=== PATIENT | female | born 1985 | race Caucasian/White ===

== ENCOUNTER 2023-02-19 18:06 | Outpatient (CLI) | payer MEDICAID | END 2023-02-19 18:07 | disposition critical access hospital (66) | LOC: EMS 18:06 | DX: S70.312A Abrasion, left thigh, initial encounter (principal); S70.311A Abrasion, right thigh, initial encounter; S50.312A Abrasion of left elbow, initial encounter; S80.212A Abrasion, left knee, initial encounter; S80.211A Abrasion, right knee, initial encounter; V03.90XA Pedestrian on foot injured in collision with car, pick-up truck or van, unspecified whether traffic or nontraffic accident, initial encounter; Y92.414 Local residential or business street as the place of occurrence of the external cause | CPT/HCPCS: A0425; A0429 ==

== ENCOUNTER 2023-02-19 18:43 | Emergency (ER) | payer MEDICAID ==
[2023-02-19] MEDS: ONDANSETRON 4 MG/2 ML VIAL IVP STA (19:00)
[2023-02-19] MEDS: MORPHINE 2 MG/ML CARPUJECT IVP STA (19:02)
[2023-02-19] MEDS: TETANUS/DIPHTHERIA/PERTUSSIS 0.5 ML SYRINGE IM ONE (19:05)
[2023-02-19 19:26] LABS: BASOPHILS % (AUTO) 0.5 %; EOSINOPHILS # (AUTO) 0.1 10^3/uL (0.0-0.7); EOSINOPHILS % (AUTO) 0.6 %; HCT - HEMATOCRIT 40.7 % (37.0-47.0); HGB - HEMOGLOBIN 13.2 g/dL (12.0-16.0); LYMPHOCYTES % (AUTO) 24.5 %; MEAN CORPUSCULAR HEMOGLOBIN 30.2 pg (27.0-31.0); MEAN CORPUSCULAR HGB CONC 32.4 g/dL (32.0-36.0); MEAN CORPUSCULAR VOLUME 93.1 fL (81.0-99.0); MEAN PLATELET VOLUME 8.5 fL (7.9-10.8); MONOCYTES # (AUTO) 0.5 10^3/uL (0.0-1.0); MONOCYTES % (AUTO) 6.4 %; NEUTROPHILS # (AUTO) 5.5 10^3/uL (1.5-6.6); NEUTROPHILS % (AUTO) 67.6 %; PLT - PLATELET COUNT 294 10^3/uL (130-450); RED BLOOD COUNT 4.37 10^6/uL (4.20-5.40); RED CELL DISTRIBUTION WIDTH 12.4 % (12.0-15.0); WHITE BLOOD COUNT 8.2 x10^3/uL (4.8-10.8)
[2023-02-19 20:00] LABS: INR 1.2 (0.8-1.2); PT - PROTHROMBIN TIME 12.9 secs (9.9-12.6)
[2023-02-19 20:10] LABS: ALBUMIN 4.4 g/dL (3.2-5.5); ALBUMIN/GLOBULIN RATIO 2.2 (1.0-2.2); BILIRUBIN,TOTAL 0.5 mg/dL (0.2-1.0); CALCIUM 9.1 mg/dL (8.5-10.3); CREATININE 0.9 mg/dL (0.6-1.3); POTASSIUM 3.7 mmol/L (3.5-4.5); TOTAL PROTEIN 6.4 g/dL (6.4-8.9)
--- NOTE | 2023-02-19 20:22 | XRAY Report ---
PROCEDURE: Elbow 3 View LT INDICATIONS: crush injury, pain TECHNIQUE: 3 views of the elbow were acquired. COMPARISON: None. FINDINGS: Suboptimal evaluation due to patient positioning. Bones: No fractures or dislocations. No suspicious bony lesions. Soft tissues: No effusion. No suspicious soft tissue calcifications or masses. IMPRESSION: No acute bony abnormality. Reviewed by: Alvaro Zhang on 02/19/2023 8:21 PM [facility] Approved by: Alvaro Zhang on 02/19/2023 8:21 PM [facility] Station ID: [id number]
--- NOTE | 2023-02-19 20:23 | XRAY Report ---
PROCEDURE: Femur 2V RT INDICATIONS: tire crush injury, pain TECHNIQUE: 2 views of the femur were acquired. COMPARISON: None. FINDINGS: Bones: No fractures or dislocations. No suspicious bony lesions. Soft tissues: No suspicious soft tissue calcifications or masses. IMPRESSION: No acute bony abnormality. Reviewed by: Alvaro Zhang on 02/19/2023 8:21 PM PST Approved by: Alvaro Zhang on 02/19/2023 8:21 PM [facility] Station ID: [id number]
--- NOTE | 2023-02-19 20:23 | XRAY Report ---
PROCEDURE: Femur 1V LT INDICATIONS: pain TECHNIQUE: 2 views of the femur were acquired. COMPARISON: None. FINDINGS: Bones: No fractures or dislocations. No suspicious bony lesions. Soft tissues: No suspicious soft tissue calcifications or masses. IMPRESSION: No acute bony abnormality. Reviewed by: Alvaro Zhang on 02/19/2023 8:21 PM [facility] Approved by: Alvaro Zhang on 02/19/2023 8:21 PM [facility] Station ID: [id number]
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
--- NOTE | 2023-02-19 20:31 | XRAY Report ---
PROCEDURE: Forearm LT INDICATIONS: crush injury, pain TECHNIQUE: 2 views of the forearm were acquired. COMPARISON: None. FINDINGS: Bones: No fractures or dislocations. No suspicious bony lesions. Soft tissues: No suspicious soft tissue calcifications or masses. IMPRESSION: No acute bony abnormality. Reviewed by: Alvaro Zhang on 02/19/2023 8:30 PM [facility] Approved by: Alvaro Zhang on 02/19/2023 8:30 PM [facility] Station ID: [id number]
--- NOTE | 2023-02-19 20:32 | XRAY Report ---
PROCEDURE: Hip w/Pelvis 2-3V RT INDICATIONS: tire crush injury, pain TECHNIQUE: AP pelvis with lateral view(s) of the bilateral hip(s). COMPARISON: None. FINDINGS: Bones: No fractures or dislocations. No suspicious bony lesions. Soft tissues: No suspicious soft tissue calcifications or masses. IMPRESSION: No acute bony abnormality. Reviewed by: Alvaro Zhang on 02/19/2023 8:31 PM PST Approved by: Alvaro Zhang on 02/19/2023 8:31 PM PST Station ID: [id number]
--- NOTE | 2023-02-19 20:32 | XRAY Report ---
PROCEDURE: Wrist 3 View LT INDICATIONS: crush injury, pain TECHNIQUE: 3 views of the wrist were acquired. COMPARISON: None. FINDINGS: Bones: No fractures or dislocations. No suspicious bony lesions. Soft tissues: No suspicious soft tissue calcifications or masses. IMPRESSION: No acute bony abnormality. Reviewed by: Alvaro Zhang on 02/19/2023 8:31 PM [facility] Approved by: Alvaro Zhang on 02/19/2023 8:31 PM [facility] Station ID: [id number]
[2023-02-19 21:18] VITALS: O2SAT 100
[2023-02-19 21:30] LABS: BILIRUBIN,URINE NEGATIVE (NEGATIVE); GLUCOSE, URINE (UA) NEGATIVE (NEGATIVE); KETONES,URINE (UA) TRACE mg/dL (NEGATIVE); LEUKOCYTE ESTERASE, URINE TRACE (NEGATIVE); NITRITE,URINE POSITIVE (NEGATIVE); OCCULT BLOOD,URINE TRACE-INTA (NEGATIVE); PROTEIN,URINE 100 mg/dL (NEGATIVE); UROBILINOGEN,URINE 2 E.U./dL (NORMAL)
[2023-02-19] MEDS: LIDOCAINE 1% 2 ML VIAL SUBQ STA (21:30)
[2023-02-19 21:32] LABS: CLARITY,URINE CLOUDY (CLEAR); HCG UR QUAL NEGATIVE
[2023-02-19 21:35] LABS: RBC,URINE 0-5 /HPF (0-5); WBC,URINE >25 /HPF (0-5)
[2023-02-19 21:36] LABS: BACTERIA,URINE Many /HPF (None Seen); MUCUS,URINE Few Strands; SQUAMOUS EPITHELIAL CELL,UR FEW Squamous (<= Few)
[2023-02-19 22:56] VITALS: BP 125/86
[2023-02-19] MEDS: NITROFURANTOIN MACRO 100 MG CAPSULE PO STA (23:05)
[2023-02-19] MEDS: oxyCODONE/ACET 5/325 Prepack 4 PO STA (23:06)
== END 2023-02-19 23:22 | disposition home or self-care (01) ==
LOC: ED 18:43
DX: S51.012A Laceration without foreign body of left elbow, initial encounter (principal); S50.312A Abrasion of left elbow, initial encounter; S70.312A Abrasion, left thigh, initial encounter; S70.311A Abrasion, right thigh, initial encounter; V09.9XXA Pedestrian injured in unspecified transport accident, initial encounter; Y92.414 Local residential or business street as the place of occurrence of the external cause; N30.01 Acute cystitis with hematuria; B96.20 Unspecified Escherichia coli [E. coli] as the cause of diseases classified elsewhere; Z23 Encounter for immunization
CPT/HCPCS: 12001; 36415; 80053; 81001; 81003; 81025; 85025; 85610; 87086; 87181; 90471; 99284

== ENCOUNTER 2023-03-01 16:25 | Emergency (ER) | payer MEDICAID ==
[2023-03-01] MEDS ORDERED: IBUPROFEN 600 MG TABLET PO STA (16:51)
[2023-03-01] MEDS ORDERED: HYDROcod/ACETAM 5/325 MG TABLET PO STA (16:51)
[2023-03-01] MEDS ORDERED: cephALEXin 250 MG CAPSULE PO STA (16:51)
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
--- NOTE | 2023-03-01 17:39 | XRAY Report ---
PROCEDURE: Lumbar Spine 2 View INDICATIONS: back inj TECHNIQUE: 3 views of the lumbar spine were acquired. COMPARISON: None. FINDINGS: Bones: This patient has transitional anatomy. For the purposes of this examination, the level with t he vestigial ribs is considered to be T12. By this numbering scheme, the L5 level is transitional and is highly sacralized. There is mild disc space narrowing seen at L5-S1. In this patient with transitional lumbar anatomy, t his may simply be related to a transitional disc. The disc spaces are otherwise within normal limits. There is minimal levoconvex lumbar sclerotic curvature. No significant AP alignment abnormality can be seen. No vertebral body compression fractures. No suspicious bony lesions. Mild lower lumbar spine facet arthropathy is seen. Soft tissues: Overlying bowel gas pattern is normal. No suspicious soft tissue calcifications. Cho lecystectomy clips are seen. An IUD is seen at the expected location. IMPRESSION: Negative for acute abnormality by plain film. Transitional lumbar anatomy noted, with a highly sacralized L5 level and the vestigial ribs seen at T 12. If it would be helpful for clinical management decision making, please consider a dedicated, schedule d lumbar MRI for further evaluation (assuming that there is no contraindication). Additional findings: Cholecystectomy IUD Reviewed by: Deyvi Sampson MD on 03/01/2023 4:37 PM [facility] Approved by: Deyvi Sampson MD on 03/01/2023 4:37 PM [facility] Station ID: [id number]
--- NOTE | 2023-03-01 17:50 | XRAY Report ---
PROCEDURE: Tib/Fib LT INDICATIONS: leg inj TECHNIQUE: 2 views of the tibia and fibula were acquired. COMPARISON: None. FINDINGS: Bones: No fractures or dislocations. No suspicious bony lesions. Soft tissues: No suspicious soft tissue calcifications or masses. IMPRESSION: No acute bony abnormality. Reviewed by: Deyvi Sampson MD on 03/01/2023 4:49 PM [facility] Approved by: Deyvi Sampson MD on 03/01/2023 4:49 PM [facility] Station ID: [id number]
--- NOTE | 2023-03-01 17:50 | XRAY Report ---
PROCEDURE: Elbow 3 View LT INDICATIONS: elbow inj TECHNIQUE: 3 views of the elbow were acquired. COMPARISON: 02/19/2023 FINDINGS: Bones: No fractures or dislocations. No suspicious bony lesions. Soft tissues: No significant joint effusion is seen. There is soft tissue swelling involving the medi al aspect of the elbow. IMPRESSION: Soft tissue swelling is seen. No findings of fracture are seen. However, if there is point tenderness (or other clinical concern fo r a fracture not seen on these plain films) then please consider a short-term follow-up plain film se [place] or CT for further evaluation. Reviewed by: Deyvi Sampson MD on 03/01/2023 4:49 PM [facility] Approved by: Deyvi Sampson MD on 03/01/2023 4:49 PM [facility] Station ID: [id number]
[2023-03-01] MEDS ORDERED: CEPHALEXIN 250 MG Prepack 8 CAP BOTTLE PO STA (17:56)
[2023-03-01] MEDS ORDERED: HYDROcod/ACET 5/325 Prepack 4 PO STA (17:56)
[2023-03-01 18:24] VITALS: BP 127/67; O2SAT 100
== END 2023-03-01 18:23 | disposition home or self-care (01) ==
LOC: ED 16:25
DX: S82.832A Other fracture of upper and lower end of left fibula, initial encounter for closed fracture (principal); S39.92XA Unspecified injury of lower back, initial encounter; S50.02XA Contusion of left elbow, initial encounter; S70.312A Abrasion, left thigh, initial encounter; L08.9 Local infection of the skin and subcutaneous tissue, unspecified; V03.90XA Pedestrian on foot injured in collision with car, pick-up truck or van, unspecified whether traffic or nontraffic accident, initial encounter
CPT/HCPCS: 72100; 73080; 73590; 99284; A9270

== ENCOUNTER 2023-03-12 07:44 | Outpatient (CLI) | payer MEDICAID ==
--- NOTE | 2023-03-12 18:47 | XRAY Report ---
PROCEDURE: Tib/Fib LT INDICATIONS: LEFT PROX FIB FRACTURE TECHNIQUE: 2 views of the tibia and fibula were acquired. COMPARISON: Tib-fib radiograph on March 01, 2023. FINDINGS: Bones: Comminuted, mildly displaced fracture of the proximal fibula appears similar to the prior exa m with no significant callus formation. Fracture planes remain conspicuous. Stable alignment. No new fracture or dislocation. No suspicious osseous lesions. Soft tissues: No suspicious soft tissue calcifications or masses. IMPRESSION: Comminuted, mildly displaced fracture of the proximal fibula appears similar to the prior exam with n o significant interval osseous healing. Stable alignment. Reviewed by: Cristóbal Wells MD on 03/12/2023 6:46 PM PST Approved by: Cristóbal Wells MD on 03/12/2023 6:46 PM PST Station ID: [id number]
--- NOTE | 2023-03-12 20:22 | XRAY Report ---
PROCEDURE: Foot 3 View LT INDICATIONS: LEFT FOOT PAIN TECHNIQUE: 3 views of the foot were obtained. COMPARISON: None FINDINGS: Bones: No fractures or dislocations. No suspicious bony lesions. Large plantar calcaneal spur Soft tissues: Unremarkable. No radiopaque foreign body. IMPRESSION: Large calcaneal spur. No fracture. Reviewed by: Pierce Brandon MD on 03/12/2023 7:20 PM [facility] Approved by: Pierce Brandon MD on 03/12/2023 7:20 PM [facility] Station ID: [id number]
== END 2023-03-12 23:59 | disposition home or self-care (01) ==
LOC: DI.WOS 07:44
PROVIDERS: ATTEND Physician Assistant Surgical
DX: M77.32 Calcaneal spur, left foot (principal); S82.832D Other fracture of upper and lower end of left fibula, subsequent encounter for closed fracture with routine healing

== ENCOUNTER 2023-03-20 08:00 | Outpatient (CLI) | payer MEDICAID ==
--- NOTE | 2023-03-20 14:05 | XRAY Report ---
PROCEDURE: Elbow 3 View LT INDICATIONS: LEFT ELBOW PAIN TECHNIQUE: 3 views of the elbow were acquired. COMPARISON: Elbow x-ray 03/01/2023, 02/19/2023 FINDINGS: Bones: No fractures or dislocations. No suspicious bony lesions. Soft tissues: No effusion. No suspicious soft tissue calcifications or masses. IMPRESSION: No visualized fracture over several prior exams. If concern persists, CT or MRI is recommended. Reviewed by: Ysabel Arshad MD on 03/20/2023 2:03 PM [facility] Approved by: Ysabel Arshad MD on 03/20/2023 2:03 PM [facility] Station ID: [id number]
== END 2023-03-20 23:59 | disposition home or self-care (01) ==
LOC: DI.S 08:00
PROVIDERS: ATTEND Registered Nurse
DX: M25.522 Pain in left elbow (principal)

== ENCOUNTER 2023-05-24 14:20 | Outpatient (CLI) | payer MEDICAID ==
--- NOTE | 2023-05-24 16:33 | XRAY Report ---
PROCEDURE: Elbow 3 View LT INDICATIONS: LEFT ELBOW PAIN TECHNIQUE: 3 views of the elbow were acquired. COMPARISON: Left elbow radiograph on March 20, 2023. FINDINGS: Bones: No fractures or dislocations. Normal alignment. Joint spaces are maintained. No suspicious b lefty lesions. Soft tissues: No effusion. No suspicious soft tissue calcifications or masses. IMPRESSION: No acute bony abnormality. No elbow joint effusion. Reviewed by: Cristóbal Wells MD on 05/24/2023 4:31 PM PST Approved by: Cristóbal Wells MD on 05/24/2023 4:31 PM PST Station ID: [id number]
--- NOTE | 2023-05-24 16:49 | XRAY Report ---
PROCEDURE: Knee 3 View LT INDICATIONS: LEFT KNEE FRACTURE TECHNIQUE: 3 views of the knee(s) were acquired. COMPARISON: Tib-fib radiograph on March 12, 2023. FINDINGS: Bones: Comminuted, mildly displaced, extra articular fracture of the fibular neck demonstrates inter tavon callus formation. Stable alignment. No new fracture or dislocation. No suspicious bony lesions. Soft tissues: No knee joint effusion. No suspicious soft tissue calcifications or masses. IMPRESSION: Comminuted, mildly displaced fracture of the proximal fibula demonstrates interval osseous healing. S table alignment. Reviewed by: Cristóbal Wells MD on 05/24/2023 4:47 PM PST Approved by: Cristóbal Wells MD on 05/24/2023 4:47 PM PST Station ID: [id number]
== END 2023-05-24 23:59 | disposition home or self-care (01) ==
LOC: DI.WOS 14:20
PROVIDERS: ATTEND Physician Assistant Surgical
DX: S82.832D Other fracture of upper and lower end of left fibula, subsequent encounter for closed fracture with routine healing (principal); S53.492A Other sprain of left elbow, initial encounter

== ENCOUNTER 2023-09-10 19:38 | Outpatient (CLI) | payer MEDICAID | END 2023-09-10 23:59 | disposition critical access hospital (66) | LOC: EMS 19:38 | DX: Z04.6 Encounter for general psychiatric examination, requested by authority (principal); R46.89 Other symptoms and signs involving appearance and behavior; S51.812A Laceration without foreign body of left forearm, initial encounter; X78.1XXA Intentional self-harm by knife, initial encounter | CPT/HCPCS: A0425; A0429; A0999 ==

== ENCOUNTER 2023-09-10 19:54 | Emergency (ER) | payer MEDICAID ==
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
[2023-09-10] MEDS: QUEtiapine 25 MG TABLET PO STA (20:54)
[2023-09-10 20:57] LABS: HCG UR QUAL NEGATIVE
[2023-09-10 21:00] LABS: AMPHETAMINE SCREEN,URINE POSITIVE (NEGATIVE); BARBITURATE SCREEN,UR NEGATIVE (NEGATIVE); BENZODIAZEPINES SCREEN, URINE NEGATIVE (NEGATIVE); BUPRENORPHINE SCREEN, URINE NEGATIVE (NEGATIVE); COCAINE SCREEN URINE NEGATIVE (NEGATIVE); METHADONE SCREEN, URINE NEGATIVE (NEGATIVE); METHAMPHETAMINES SCREEN, URINE POSITIVE (NEGATIVE); OPIATE SCREEN, URINE NEGATIVE (NEGATIVE); OXYCODONE SCREEN, URINE NEGATIVE (NEGATIVE); THC CANNABINOID SCREEN, URINE POSITIVE (NEGATIVE); TRICYCLIC ANTIDEPRESSANT,URINE NEGATIVE (NEGATIVE)
[2023-09-10 21:03] VITALS: BP 130/80; O2SAT 99
== END 2023-09-10 20:58 | disposition home or self-care (01) ==
LOC: EDUNIT# → EDBD → ED 19:54
DX: R45.88 Nonsuicidal self-harm (principal); F41.9 Anxiety disorder, unspecified
CPT/HCPCS: 80306; 81025; 99283; A9270; 80053; 80143; 80179; 81001; 81003; 82077; 83690; 84443; 85025; 87086